=== PATIENT | male | born 1955 | race Two or more races ===

== ENCOUNTER → 2024-05-24 | Outpatient (CLI) | payer MEDICARE, MEDICAID, SELFPAY ==
--- NOTE | 2024-05-24 10:54 | XR_ITS ---
Examination: Humerus 2 views left Technique: Humerus, AP lateral 2 views Date and time of exam: May 24, 2024 1150 hours INDICATIONS: Patient fell 3 days ago with injury to left arm, left arm pain FINDINGS: No shoulder fracture or dislocation Shaft of the humerus intact Moderate narrowing glenohumeral joint IMPRESSION: No acute fracture
--- NOTE | 2024-05-24 10:54 | XR_ITS ---
Examination: Ribs, bilateral, with PA chest, 7 views Technique: Chest PA, RIBS AP, RPO, LPO, right and left ribs AP coned lower ribs 5 views Exam date and time: May 24, 2024 1150 hours INDICATIONS: Patient fell 3 days ago with injury to the right and left chest, bilateral rib pain FINDINGS: Normal heart size No pneumothorax Multiple old left rib fractures Old right clavicle fracture No acute rib fracture Impression: No pneumothorax pulmonary contusion or hemothorax No acute rib fractures
== END | disposition home or self-care (01) ==
LOC: CDIM 10:22
PROVIDERS: PCP Nurse Practitioner Family; Referring Provider Nurse Practitioner Family; Visit Provider Nurse Practitioner Family
DX: S29.9XXA Unspecified injury of thorax, initial encounter (principal); S49.92XA Unspecified injury of left shoulder and upper arm, initial encounter; W19.XXXA Unspecified fall, initial encounter
CPT/HCPCS: 71111; 73060

== ENCOUNTER → 2025-02-01 | Outpatient (CLI) | payer MEDICARE, MEDICAID, SELFPAY ==
--- NOTE | 2025-02-01 10:32 | XR_ITS ---
EXAMINATION: Skull series 4 views TECHNIQUE: Ericka, right lateral, left lateral Echo skull series 4 views Date and time: February 01, 2025, 1041 hours INDICATION: Patient fell 1 week ago with injury of the head, head pain. FINDINGS: Intact appearing cranial vault Visualized facial bones appear intact Normal sella turcica IMPRESSION: No acute fracture
--- NOTE | 2025-02-01 10:32 | XR_ITS ---
EXAMINATION: Facial series 4 views TECHNIQUE: Kendrick Barnett lateral submentovertex facial series 4 views Date and time: February 01, 2025 1039 hours INDICATIONS: Patient fell 1 week ago with injury of the face, facial pain. FINDINGS: Orbital rims intact. Maxilla and mandible intact with no displaced nasal bone fracture IMPRESSION: No acute facial fracture
[2025-02-01 11:21] LABS: Misc Send Out* See Sep Rpt
[2025-02-01 11:56] LABS: Basophils # (Auto) 0.1 Thou/mm3 (0.0-0.2); Basophils % (Auto) 1 % (0-2.5); Eosinophils # (Auto) 0.7 Thou/mm3 (0.0-0.5); Eosinophils % (Auto) 6 % (0-10); Hematocrit 37.9 % (41.0-53.0); Hemoglobin 12.7 g/dL (13.5-16.0); Immature Granulocytes Auto 0.07 Thou/mm3 (0.00-0.00); Lymphocytes # (Auto) 1.4 Thou/mm3 (1.0-4.8); Lymphocytes % (Auto) 12 % (10-50); Mean Corpuscular HGB Conc 33.5 g/dl (31.0-37.0); Mean Corpuscular Hemoglobin 28.7 pg (25.0-35.0); Mean Corpuscular Volume 86 fL (80-100); Monocytes # (Auto) 0.6 Thou/mm3 (0.0-0.8); Monocytes % (Auto) 5 % (0-12); Neutrophils # (Auto) 9.1 Thou/mm3 (1.8-7.7); Neutrophils % (Auto) 76 % (37-80); Nucleated Red Blood Cell # 0.00 Thou/mm3 (0.00-0.00); Nucleated Red Blood Cell % 0 /100 WBC (0); Platelet Count 222 Thou/mm3 (140-440); RDW Standard Deviation 40.5 fL (35.1-43.9); Red Blood Count 4.43 Miln/mm3 (4.50-5.90); White Blood Count 12.0 Thou/mm3 (3.8-10.6)
[2025-02-01 12:05] LABS: Parathyroid Hormone Intact 52.4 pg/ml (18.5-88.0)
[2025-02-01 12:08] LABS: Alanine Aminotransferase 24 U/L (10-49); Albumin, Serum 4.9 gm/dL (3.4-4.8); Albumin/Globulin Ratio 1.7 (1.2-2.2); Alkaline Phosphatase 188 U/L (46-116); Anion Gap 10 (7-16); Aspartate Amino Transferase 28 U/L (0-34); BUN/Creatinine Ratio 19 Ratio (12-20); Bilirubin,Total 0.6 mg/dL (0.3-1.2); Blood Urea Nitrogen 26 mg/dL (9-23); Calcium 10.2 mg/dL (8.3-10.6); Calcium (Corrected) 10.2 mg/dL (8.5-10.1); Carbon Dioxide 26.1 mMol/L (20.0-31.0); Chloride 103 mMol/L (98-107); Creatinine (Component) 1.4 mg/dL (0.6-1.3); Globulin 2.9 gm/dL (2.3-3.5); Glucose 147 mg/dL (74-106); Osmolality,Calculated 285 (275-295); Phosphorous 3.4 mg/dL (2.4-5.1); Potassium 4.7 mMol/L (3.4-5.1); Sodium 139 mMol/L (136-145); Total Protein 7.8 gm/dL (5.7-8.2); eGFR 54 See Note
[2025-02-01 12:09] LABS: Vitamin D 25 Hydroxy Total 28.1 ng/mL (7.3-40.2)
[2025-02-01 12:09] LABS: Creatinine MALB Rnd Ur 135 mg/dL (30-125); Microalbumin Creat Ratio 83 mg/gCrea (<30); Microalbumin, Random Urine 112 mg/L (0-300)
[2025-02-04 15:36] LABS: A. alternata (M6) IgE 0.11 kU/L; A. fumigatus (M3) Class 0/1; A. fumigatus (M3) IgE 0.16 kU/L; Alder (T2) Class 0/1; Alder (T2) IgE 0.20 kU/L; Bermuda Grass (G2) Class 1; Bermuda Grass (G2) IgE 0.37 kU/L; Birch (T3) Class 0/1; Birch (T3) IgE 0.19 kU/L; C. herbarum (M2) Class 0/1; C. herbarum (M2) IgE 0.16 kU/L; Cat Dander (e1) Class 0; Cat Dander (e1) IgE <0.10 kU/L; Cockroach (I6) IgE 0.25 kU/L; Common Pigweed (W14) IgE 0.19 kU/L; Common Ragweed (W1) Class 0/1; Common Ragweed (W1) IgE 0.32 kU/L; D. farinae (D2) Class 0; D. farinae (D2) IgE <0.10 kU/L; D. pteronyssinus (D1) Class 0; D. pteronyssinus (D1) IgE <0.10 kU/L; Dog Dander (E5) IgE <0.10 kU/L; Elm (T8) IgE 0.27 kU/L; Mountain Cedar (T6) Class 0/1; Mountain Cedar (T6) IgE 0.17 kU/L; Mouse Ur Prot (E72) IgE <0.10 kU/L; Mugwort (W6) Class 0/1; Mugwort (W6) IgE 0.19 kU/L; Oak White (T7) Class 0/1; Oak White (T7) IgE 0.22 kU/L; Olive Tree (T9) Class 0/1; Olive Tree (T9) IgE 0.18 kU/L; P. notatum (M1) Class 0/1; P. notatum (M1) IgE 0.12 kU/L; Russian Thistle (W11) Class 0/1; Russian Thistle (W11) IgE 0.31 kU/L; Sycamore (T11) IgE 0.22 kU/L; Timothy Grass (G6) IgE 0.29 kU/L; White Mulberry (T70) IgE 0.15 kU/L
[2025-02-07 06:27] LABS: A. alternata (M6) Class 0/1; Cockroach (I6) Class 0/1; Common Pigweed (W14) Class 0/1; Dog Dander (E5) Class 0; Elm (T8) Class 0/1; IgE, Total, Serum 1335 kU/L (114 OR LESS); Mouse Ur Prot (E72) Class 0; Sycamore (T11) Class 0/1; Timothy Grass (G6) Class 0/1; White Mulberry (T70) Class 0/1
[2025-02-07 06:30] LABS: IgE, Serum* 1494 kU/L (114 OR LESS)
== END | disposition home or self-care (01) ==
LOC: COPL 10:12
PROVIDERS: PCP Nurse Practitioner Family; Referring Provider Internal Medicine Nephrology; Visit Provider Radiology Diagnostic Radiology
DX: S09.90XA Unspecified injury of head, initial encounter (principal); W19.XXXA Unspecified fall, initial encounter; E21.3 Hyperparathyroidism, unspecified; I12.9 Hypertensive chronic kidney disease with stage 1 through stage 4 chronic kidney disease, or unspecified chronic kidney disease; E11.29 Type 2 diabetes mellitus with other diabetic kidney complication; N18.9 Chronic kidney disease, unspecified; D63.1 Anemia in chronic kidney disease; E78.5 Hyperlipidemia, unspecified; E55.9 Vitamin D deficiency, unspecified; L23.9 Allergic contact dermatitis, unspecified cause
CPT/HCPCS: 36415; 70200; 70260; 80053; 82043; 82306; 82570; 82785; 83970; 84100; 85025; 86003